=== PATIENT | male | born 1990 | race Caucasian/White ===

== ENCOUNTER 2016-07-05 02:26 | Observation (INO) | payer OTHER ==
[2016-07-05] MEDS ORDERED: ceFAZolin SODIUM 1 GM in DEXTROSE 5 % IN WATER 100 ML IV ONE ×2 (02:31)
[2016-07-05 02:40] LABS: Hematocrit 43.1 % (42.0-52.0); Hemoglobin 15.1 gm/dL (13.5-18.0); Mean Cell Volume 85.9 fl (78-100); Mean Corpuscular Hemoglobin 30.1 pg (27-31); Mean Platelet Volume 11.8 fl (6.0-9.5); Neutrophil % 49.4 % (42-75.0); Platelet Count 200 K/mm3 (150-450); Red Blood Count 5.02 M/mm3 (4.7-6.0); Red Cell Distribution Width 11.7 % (11.5-14.0); White Blood Count 8.1 K/mm3 (4.0-10.5)
[2016-07-05] MEDS ORDERED: LIDOCAINE HCL/EPINEPHRINE 30 ML VIAL IJ ONE (02:47)
[2016-07-05 02:56] LABS: Albumin * 4.6 gm/dl (3.4-5.0); Anion Gap 17.8 mmol/L (6.8-13.8); BUN/Creatinine Ratio 10.1 (9.0-21.6); Bilirubin, Total 0.5 mg/dL (0.0-1.1); Calcium * 8.8 mg/dL (7.9-10.9); Carbon Dioxide 22.2 mmol/L (24-32.6); Total Protein 7.7 gm/dL (6.2-8.2)
--- NOTE | 2016-07-05 02:59 | ERNOTE ---
Upper Extremity HPI - Narrative Date of Service: 07/05/16 - General Extremities Pain Location: forearm: right Time Seen by Provider: 07/05/16 02:29 Source: patient Exam Limitations: no limitations - Immun/Allergies/Home Medications Immunizations: IMMUNIZATION HX History of Influenza Vaccine No Hx Pneumococcal Vaccination No Allergies/Adverse Reactions: Allergies Allergy/AdvReac Type Severity Reaction Status Date / Time hydrocodone Allergy Verified 07/05/16 02:38 Home Medications: HOME MEDICATIONS NK [No Home Medication] 12/13/12 [Last Taken Unknown] - History of Present Illness Narrative: Patient put his hand through glass 5 minutes prior to presentation to ED. Patient has also been drinking. Patient states he has pain in his right forearm. Review of Systems - Review of Systems Constitutional: Present: no symptoms reported EYE: Present: no symptoms reported ENT: Present: no symptoms reported Respiratory: Present: no symptoms reported Cardiology: Present: no symptoms reported Gastrointestinal/Abdominal: Present: no symptoms reported Musculoskeletal: Present: other - two lacerations to the right forearm - Patient's Past Medical History Patient History - Medical: No pertinent hx Patient History - Cardiac/Respiratory: No pertinent hx Patient History - Cancer: No Hx of Cancer Patient History - Surgical Procedures: Appendectomy Patient History - Other: None - Social History Living Situations: home Psych History: No pertinent hx Smoking Status: Never smoker Alcohol Use: occasionally Drug Use: none - Immunizations Hx Pneumococcal Vaccination: No History of Influenza Vaccine: No Physical Exam - Physical Exam General Appearance: Present: wd/wn, alert, no apparent distress, other - very anxious Respiratory: Present: no respiratory distress, normal breath sounds, no accessory muscle use, chest nontender, lungs clear Cardiovascular/Chest: Present: regular rate, rhythm, no murmur, normal peripheral pulses Gastrointestinal/Abdominal: Present: normal bowel sounds Extremity Exam: Present: other - There is a 3.5 cm laceration to the volar aspect of right forearm. Also patient has full sensation in right hand/fingers and full flexion motion against resistance when I examine him. He is bleeding from both lacerations. Xray reveals two small pieces of glass in volar laceration. Neurological Exam: Present: alert, oriented, normal mood/affect ED Progress - Results and Orders Patient's Lab Results:: I have reviewed the patient's lab results. - Vital Signs Patient's Vital Signs:: I have reviewed the patient's vital signs. Vital Signs: Vital Signs 07/05/16 02:29 Temperature 36.3 C L Pulse Rate 89 Respiratory 20 Rate Blood Pressure 168/78 O2 Sat by Pulse 98 Oximetry - Progress/Reassessment Chief Complaint: Upper Extremity Injury/Problem Plan - Plan Plan: Immediately a sphygmomanometer cuff was applied to patient's right brachial area and pumped up to 200. Bleeding stopped immediately. Trauma activated and Dr. Cain presented to patient's bedside for evaluation and care. Repair was done per Dr. Cain at bedside however there is a deeper embedded glass particle which was unattainable. Due to patient's elevated blood alcohol level, patient will be admitted to obs and taken to OR later today. Departure Clinical Impression: Laceration of forearm with foreign body Qualifiers: Encounter type: initial encounter Laterality: right Qualified Code(s): S51.821A - Laceration with foreign body of right forearm, initial encounter - Departure Disposition: [facility] Condition: Fair
[2016-07-05] MEDS ORDERED: ONDANSETRON HCL/PF 2 MG/ML VIAL ONE (03:04)
[2016-07-05] MEDS ORDERED: ONDANSETRON HCL/PF 2 MG/ML VIAL IV ONE (03:07)
[2016-07-05] MEDS ORDERED: NORMAL SALINE 1,000 ML IV PRN (03:42)
[2016-07-05] MEDS ORDERED: MORPHINE SULFATE 2 MG/ML DISP.SYRIN IV PRN (03:48)
[2016-07-05] MEDS ORDERED: DIPHTH,PERTUSS(ACELL),TET VAC 0.5 ML VIAL IM ONE (04:15)
[2016-07-05 04:29] LABS: Cocaine Ur Negative (NEGATIVE); Urine Barbiturate Negative (NEGATIVE); Urine Benzodiazepines Negative (NEGATIVE); Urine Opiates Negative (NEGATIVE); Urine PCP Negative (NEGATIVE); Urine THC Negative (NEGATIVE)
[2016-07-05] MEDS: RINGERS SOLUTION,LACTATED 1,000 ML IV PRN ×3 (05:02→09:55)
--- NOTE | 2016-07-05 09:40 | HP ---
Chief Complaint - Chief Complaint Date of Service: 07/04/16 Time of Service: 02:30 Chief Complaint: Laceration of rt arm. History of Present Illness: Drinking beer tonight and accidentally put rt arm through a window. - Narrative Narrative: Healthy individual with no prior major medical illnesses. - Patient's Past Medical History Patient History - Medical: No pertinent hx Patient History - Cardiac/Respiratory: No pertinent hx Patient History - Cancer: No Hx of Cancer Patient History - Surgical Procedures: Appendectomy Patient History - Other: None - Family History Family History:: no untoward family reactions to anesthesia - Family History Mother Family History - Medical: No pertinent hx Family History - Cardiac/Respiratory: No pertinent hx Family History - Cancer: No pertinent family hx - Social History Living Situations: significant other Psych History: No pertinent hx Smoking Status: Never smoker Have you smoked in the past 12 months: No Do you dip or chew tobacco: Yes - occassional Alcohol Use: occasionally Drug Use: none - Immunizations Hx Pneumococcal Vaccination: No History of Influenza Vaccine: No Review Of Systems (GEN) - Review of Systems EENTM: Present: No Symptoms Reported Respiratory: Present: No Symptoms Reported Cardiac: Present: No Symptoms Reported Abdominal: Present: No Symptoms Reported Genitourinary: Present: No Symptoms Reported Musculoskeletal: Present: No Symptoms Reported Neurological: Present: No Symptoms Reported Skin: Present: No Symptoms Reported Endocrine: Present: No Symptoms Reported Allergies/Adverse Reactions: Allergies Allergy/AdvReac Type Severity Reaction Status Date / Time hydrocodone Allergy Verified 07/05/16 02:38 Home Medications: HOME MEDICATIONS NK [No Home Medication] 12/13/12 [Last Taken Unknown] Exam - Exam Vital Signs: Vital Signs - Last Taken Temp 37.0 C 07/05/16 06:45 Pulse 88 07/05/16 06:45 Resp 20 07/05/16 06:45 BP 121/54 07/05/16 06:45 Pulse Ox 94 07/05/16 06:45 Comprehensive Narrative: 07/05/16 09:27 Patient presents oriented x 3 but with obvious intoxication to which he admits. Has blood spattered on clothes, and large mid rt arm l;aceration on Forearm. Has tourniquet on which has been on for 20 minutes. After tourniquet is let down there is full sensation of hand except for small area in anatomic snuff box which seems slightly hypaesthetic. There is full motor function of medial and ulnar nerve of the hand. The wound is swollen on the radial aspect where there is puncture wound. Excellent radial and ulnar pulses in the wrist with pink warm hand after the tourniquet is down. Constitutional: Present: Alert, Oriented x3 ENT Exam: Present: normal ENT inspection Neck: Present: non-tender, full range of motion Back Exam: Present: normal inspection, no vertebral tenderness Respiratory: Present: chest non-tender, lungs clear Cardiovascular/Chest: Present: normal peripheral pulses Peripheral Pulses: carotid (R): 4+, carotid (L): 4+, radial (R): 4+, radial (L) : 4+ Abdomen: Present: Normal bowel sounds, soft /Rectal: Present: Exam deferred Extremity: Present: normal range of motion, non-tender, other - see narrative Neurologic: Present: other - see narrative. Appearance: Present: appropriate appearance Eye contact: Present: cooperative, avoids eye contact Diagnostic Studies: Laboratory Results WBC 8.1 K/mm3 (4.0-10.5) 07/05/16 02:30 RBC 5.02 M/mm3 (4.7-6.0) 07/05/16 02:30 Hgb 15.1 gm/dL (13.5-18.0) 07/05/16 02:30 Hct 43.1 % (42.0-52.0) 07/05/16 02:30 MCV 85.9 fl (78-100) 07/05/16 02:30 MCH 30.1 pg (27-31) 07/05/16 02:30 MCHC 35.0 g/dl (32-36) 07/05/16 02:30 RDW 11.7 % (11.5-14.0) 07/05/16 02:30 Plt Count 200 K/mm3 (150-450) 07/05/16 02:30 MPV 11.8 fl (6.0-9.5) H 07/05/16 02:30 Immature Gran % (Auto) 0.20 % (0.001-0.429) 07/05/16 02:30 Immature Gran # (Auto) 0.02 K/mm3 (0.000-0.0310) 07/05/16 02:30 Neutrophils % 49.4 % (42-75.0) 07/05/16 02:30 Lymphocytes % 37.4 % (20-51) 07/05/16 02:30 Monocytes % 7.0 % (0.0-9) 07/05/16 02:30 Eosinophils % 5.1 % (0.0-3.0) H 07/05/16 02:30 Basophils % 0.9 % (0.0-1.0) 07/05/16 02:30 Nucleated RBC % 0.0 k/mm3 (0-1) 07/05/16 02:30 Neutrophils # 4.0 K/mm3 (1.3-6.0) 07/05/16 02:30 Lymphocytes # 3.0 k/mm3 (1.5-3.5) 07/05/16 02:30 Monocytes # 0.6 k/mm3 (0.0-1.0) 07/05/16 02:30 Eosinophils # 0.4 k/mm3 (0.0-0.7) 07/05/16 02:30 Absolute Basophils 0.1 k/mm3 (0.0-0.1) 07/05/16 02:30 Sodium 142 mmol/L (132-142) 07/05/16 02:30 Plasma Sodium 142 mmol/L (130-142) 07/05/16 02:30 Potassium 3.0 mmol/L (3.4-4.6) L 07/05/16 02:30 Chloride 105 mmol/L (97-106) 07/05/16 02:30 Carbon Dioxide 22.2 mmol/L (24-32.6) L 07/05/16 02:30 Anion Gap 17.8 mmol/L (6.8-13.8) H 07/05/16 02:30 BUN 13 mg/dL (6-23) 07/05/16 02:30 Creatinine 1.29 mg/dL (0.4-1.4) 07/05/16 02:30 Est GFR (Non-Af Amer) 70 mL/min (60-130) 07/05/16 02:30 BUN/Creatinine Ratio 10.1 (9.0-21.6) 07/05/16 02:30 Random Glucose 112 mg/dL (70-110) H 07/05/16 02:30 Calcium 8.8 mg/dL (7.9-10.9) 07/05/16 02:30 Calcium Adj for Albumin 8.0 mg/dL (8.4-10.2) L 07/05/16 02:30 Total Bilirubin 0.5 mg/dL (0.0-1.1) 07/05/16 02:30 AST 54 U/L (0-48) H 07/05/16 02:30 ALT 41 U/L (19-67) 07/05/16 02:30 Alkaline Phosphatase 66 U/L (50-170) 07/05/16 02:30 Total Protein 7.7 gm/dL (6.2-8.2) 07/05/16 02:30 Albumin 4.6 gm/dl (3.4-5.0) 07/05/16 02:30 Urine Opiates Screen Negative (NEGATIVE) 07/05/16 03:47 Barbiturate Screen Negative (NEGATIVE) 07/05/16 03:47 Ur Phencyclidine Scrn Negative (NEGATIVE) 07/05/16 03:47 Urine Amphetamine Negative (NEGATIVE) 07/05/16 03:47 U Benzodiazepines Scrn Negative (NEGATIVE) 07/05/16 03:47 Urine Cocaine Screen Negative (NEGATIVE) 07/05/16 03:47 Urine Marijuana (THC) Negative (NEGATIVE) 07/05/16 03:47 Ethyl Alcohol 248.0 mg/dL (0.0-10.0) H 07/05/16 02:30 Assessment/Plan - Narrative Narrative: After numbing the wound an attempt was made at retrieval of foreign body (glass ) and repair of wound. One piece of glass removed but other not able to be found with small c arm. Patient also nauseated so wound dressed with betadine after loose closure and will repair in A.M. after sobering up.
[2016-07-05] MEDS ORDERED: ceFAZolin SODIUM 1 GM VIAL IJ ONE (10:15)
[2016-07-05] MEDS ORDERED: RINGERS SOLUTION,LACTATED 1,000 ML IV ONE (10:20)
[2016-07-05] MEDS ORDERED: BUPIVACAINE HCL 50 ML VIAL IJ ONE (10:45)
--- NOTE | 2016-07-05 11:33 | OR ---
Operative Report - Dictated Report Narrative: Preop dx - Traumatic laceration to rt forearm with retained foreign body. Post op dx - Same Operation - Removal of foreign body with fluoroscopic control. Debridement and repair of wounds. EBL - 100cc Narrative - After induction of general endotracheal anaesthesia, Patients rt forearm was prepped and draped in routine fashion with betadine. A timeout was held. Using fluoroscopy the glass foreign body was identified on the ulnar side of the mid forearm deep to the fascia. The wound was further opened and the glass was identified and removed. The three skin wounds were then debrided down to the fascia and closed with interrupted 3-0 nylon suture. Hemostasis was obtained with bovie cautery and a couple of ligatures. The wound was dressed and the patient was returned to recovery room in satisfactory condition. Alfred Cain M.D.
[2016-07-05] MEDS ORDERED: ACETAMINOPHEN 325 MG TABLET PO PRN (11:38)
[2016-07-05] MEDS ORDERED: RINGERS SOLUTION,LACTATED 1,000 ML IV PRN (11:38)
[2016-07-05] MEDS ORDERED: KETOROLAC TROMETHAMINE 30 MG/ML VIAL IV PRN (11:39)
[2016-07-05] MEDS ORDERED: ONDANSETRON HCL/PF 2 MG/ML VIAL IV PRN (12:13)
[2016-07-05 15:13] VITALS: BP 116/63
--- NOTE | 2016-07-05 16:47 | DS ---
(1) Laceration of forearm with foreign body Problem: Acute Qualifiers: Encounter type: initial encounter Laterality: right Qualified Code(s): S51.821A - Laceration with foreign body of right forearm, initial encounter Description of Stay: Surgical repair of laceration Procedures Performed: see notes below Discharge Disposition: Home self care Disposition: Home self-care Condition: Good Discharge Activity: Other - Off work for one week. Discharge Diet: General/regular food Additional Patient Instructions (free text): F/u with Dr. Wiley in 10 days. Complete Home Medications List: Complete Home Medication List: NK [No Home Medication] 12/13/12
== END 2016-07-05 17:00 | disposition home or self-care (01) ==
LOC: ER 02:26 → MS 03:44
PROVIDERS: ADMIT Surgery; ATTEND Surgery
PROC: 0JCG0ZZ Extirpation of Matter from Right Lower Arm Subcutaneous Tissue and Fascia, Open Approach (ICD-10-PCS; 2016-07-05)
PROC: 0JQG0ZZ Repair Right Lower Arm Subcutaneous Tissue and Fascia, Open Approach (ICD-10-PCS; principal; 2016-07-05 10:00)
DX: S51.821A Laceration with foreign body of right forearm, initial encounter (principal); W25.XXXA Contact with sharp glass, initial encounter; W45.8XXA Other foreign body or object entering through skin, initial encounter
CPT/HCPCS: 12032; 20103; 36415; 73090; 76000; 80053; 80307; 85025; 96365; 96375; 99283; G0378; G0481